=== PATIENT | female | born 1975 | race Caucasian/White ===

== ENCOUNTER 2017-02-10 14:10 | Emergency (ER) | payer OTHER ==
[2017-02-10 14:18] VITALS: BP 116/78; PULSE 78; TEMP 98.1; BMI 17.4
--- NOTE | 2017-02-10 16:34 | PDOC ---
History of Present Illness - General History Source: Patient Exam Limitations: No Limitations - History of Present Illness Initial Comments: 02/10/17 17:29 Patient is a is a 41 year old female with no pmhx who presents to the ED with a left sided face pain for 2 weeks. Patient states that she has been experiencing left sided forehead and jaw pain for 2 weeks, intermittent, sharp stabbing pain. She describes the pain as muscle squeezing at the side of her face. She was evaluated by her dentist and was given amoxicillin that she discontinued after she was her PCP last week. She also reports right ear ringing but denies any on the left side. LMP - 02/07/17 She denies any drooling, change in taste, change in vision or blurry vision. PCP - Soraida musa <Nia Gtz - Last Filed: 02/10/17 18:17> <Jatin Chan - Last Filed: 02/10/17 19:51> - General Chief Complaint: Pain Stated Complaint: LEFT SIDE PAIN ON FACE Time Seen by Provider: 02/10/17 16:33 Past History <Nia Gtz - Last Filed: 02/10/17 18:17> - Past Medical History Anemia: Yes Asthma: No Cancer: No Cardiac Disorders: Yes (MURMUR) CVA: No COPD: No CHF: No Dementia: No Diabetes: No GI Disorders: No Disorders: No HTN: No Hypercholesterolemia: No Liver Disease: No Seizures: No Thyroid Disease: No Other medical history: FIBROIDS - Surgical History Abdominal Surgery: No Appendectomy: No Cardiac Surgery: No Cholecystectomy: No Lung Surgery: No Neurologic Surgery: No Orthopedic Surgery: No - Psycho/Social/Smoking Cessation Hx Anxiety: No Suicidal Ideation: No Smoking History: Never smoked Have you smoked in the past 12 months: No Information on smoking cessation initiated: No Hx Alcohol Use: No Drug/Substance Use Hx: No Substance Use Type: None Hx Substance Use Treatment: No <Jatin Chan - Last Filed: 02/10/17 19:51> - Past Medical History Allergies/Adverse Reactions: Allergies Allergy/AdvReac Type Severity Reaction Status Date / Time No Known Drug Allergies Allergy Verified 02/10/17 14:13 Home Medications: Ambulatory Orders Clindamycin [Cleocin -] 150 mg PO Q8H 02/10/17 Review of Systems - Review of Systems Able to Perform ROS?: Yes Comments:: 02/10/17 17:30 CONSTITUTIONAL: No fever, no chills, no fatigue EYES: No visual changes ENT: No ear pain, no sore throat HEAD: +left sided chest pain CARDIOVASCULAR: No chest pain, no palpitations RESPIRATORY: No cough, no SOB GI: No abdominal pain, no nausea, no vomiting, no constipation, no diarrhea GENITOURINARY: No dysuria, no frequency, no hematuria MUSKULOSKELETAL: No backpain, no joint pain, no myalgias SKIN: No rash NEURO: No headache <Nia Gtz - Last Filed: 02/10/17 18:17> *Physical Exam - Vital Signs Last Vital Signs Temp Pulse Resp BP Pulse Ox 98.1 F 78 18 116/78 100 02/10/17 14:15 02/10/17 14:15 02/10/17 14:15 02/10/17 14:15 02/10/17 14:15 - Physical Exam Comments: 02/10/17 18:18 CONSTITUTIONAL: Well-appearing; well-nourished; in no apparent distress HEAD: Normocephalic; atraumatic EYES: PERRL; EOMI, no nystagmus ENMT: +TMJ pain on the left, left sided small less than 1.5 cm enlarged preauricular lymph node non tender, Normal TMs bilaterally, no swelling of the external auditory meatus, External normal on the right; normal oropharynx, normal dentition, no malocclusion,No gengival induration or abscesses No sinus tenderness. No conjunctival pallor. Sclera are non-icteric. Moist mucous membranes. NECK: Supple; nontender; no cervical lymphadenopathy CARD: Normal S1, S2; no murmurs, rubs, or gallops RESP: Normal chest excursion with respiration; breath sounds clear and equal bilaterally; no wheezes, rhonchi, or rales ABD: Soft, non-distended; non-tender; no palpable organomegaly, no palpable hernias EXT: Normal ROM in all four extremities; non-tender to palpation; distal pulses intact SKIN: Warm, dry, no rash NEURO: +Alert, awake, appropriate. Cranial nerves 2-12 intact. Gait is stable, motor strength 5/5 <Nia Gtz - Last Filed: 02/10/17 18:17> - Vital Signs Last Vital Signs Temp Pulse Resp BP Pulse Ox 98.1 F 78 18 116/78 100 02/10/17 14:15 02/10/17 14:15 02/10/17 14:15 02/10/17 14:15 02/10/17 14:15 <Jatin Chan - Last Filed: 02/10/17 19:51> Medical Decision Making - Medical Decision Making 02/10/17 19:47 Patient is a well-appearing 41-year-old female who presents to the ER with atraumatic left facial pain for the past 3 weeks. Pain is intermittent, lancinating character, primarily involving the zygomatic arch and maxilla without changes visual acuity or other neurological deficits. In the ER, tenderness at the left TMJ was noted. Tympanic membrane and the external auditory meatus within normal limit. Small nontender, left preauricular lymph node is noted. There is no mastoid tenderness. CT of head shows no evidence of acute intracranial pathology. Differential diagnoses includes TMJ and trigeminal neuralgia. Will advise patient to take high-dose ibuprofen and if no relief, we'll advise follow up with neurology for evaluation of trigeminal neuralgia. I do not suspect Connors's palsy, subarachnoid hemorrhage or meningitis/ encephalitis at this time. Will discharge. <Jatin Chan - Last Filed: 02/10/17 19:51> *DC/Admit/Observation/Transfer - Attestations Scribe Attestion: 02/10/17 17:30 Documentation prepared by ELHAM Stein, acting as emergency medical service manager for Jtain Chan MD. <Nia Gtz - Last Filed: 02/10/17 18:17> - Attestations Physician Attestion: 02/10/17 19:46 The documentation was prepared by the scribe under my direct supervision. I have reviewed the documentation which correctly represents the findings, medical decision-making and critical action taken by me. <Jatin Chan - Last Filed: 02/10/17 19:51> Diagnosis at time of Disposition: Facial pain, acute - Discharge Dispostion Disposition: HOME Condition at time of disposition: Stable - Referrals Referrals: Raymundo Mitchell MD [Staff Physician] - - Patient Instructions Printed Discharge Instructions: DI for Headache, DI for Temporomandibular Disorder, DI for Trigeminal Neuralgia
[2017-02-10] MEDS ORDERED: IBUPROFEN 600 MG TABLET (FP) PO ONE ×2 (16:55→17:28)
== END 2017-02-10 20:12 | disposition home or self-care (01) ==
LOC: JER 14:10
DX: R51 Headache (principal); D64.9 Anemia, unspecified; R01.1 Cardiac murmur, unspecified
CPT/HCPCS: 70450-TC; 84703; 99282-25

== ENCOUNTER 2018-02-15 11:29 | Emergency (ER) | payer OTHER ==
[2018-02-15 11:35] VITALS: BP 113/59; PULSE 73; TEMP 98.4; BMI 18.1
[2018-02-15] MEDS ORDERED: ONDANSETRON 4 MG/2 ML VIAL IVPUSH ONE (12:23)
[2018-02-15] MEDS ORDERED: ACETAMINOPHEN 1000 MG/100 ML VIAL (NON FORMULARY) IVPB ONE (12:23)
[2018-02-15] MEDS ORDERED: ACETAMINOPHEN INJECTION 100 ML IVPB ONE (12:40)
[2018-02-15] MEDS ORDERED: ONDANSETRON 4 MG/2 ML VIAL ONE (12:40)
--- NOTE | 2018-02-15 12:52 | PDOC ---
Attending Attestation - Resident Resident Name: NikGuido montanez - ED Attending Attestation I have performed the following: I have examined & evaluated the patient, The case was reviewed & discussed with the resident, I agree w/resident's findings & plan, Exceptions are as noted - HPI HPI: 42 yo F history fibroids presents with 2 month history of LLQ and lower abdominal pain radiating to back and left leg. +Waxing and waning pelvic pain, herrera vaginal discharge. - Physicial Exam PE: GENERAL: Awake, alert, and fully oriented, in no acute distress HEAD: No signs of trauma EYES: PERRLA, EOMI, sclera anicteric, conjunctiva clear ENT: Auricles normal inspection, hearing grossly normal, nares patent, oropharynx clear without exudates. Moist mucosa NECK: Normal ROM, supple, no lymphadenopathy, JVD, or masses LUNGS: Breath sounds equal, clear to auscultation bilaterally. No wheezes, and no crackles HEART: Regular rate and rhythm, normal S1 and S2, no murmurs, rubs or gallops ABDOMEN: Soft, +LLQ tenderness, normoactive bowel sounds. No guarding, no rebound. No masses EXTREMITIES: Normal range of motion, no edema. No clubbing or cyanosis. No cords, erythema, or tenderness NEUROLOGICAL: Cranial nerves II through XII grossly intact. Normal speech, normal gait SKIN: Warm, Dry, normal turgor, no rashes or lesions noted. - Medical Decision Making Pt with history of fibroids, p/w pain to LLQ. Fibroids vs UTI vs diverticulitis.
[2018-02-15 13:13] LABS: URINE APPEARANCE CLEAR; URINE BILIRUBIN NEGATIVE (<2.0 mg/dL); URINE COLOR LTYELLOW; URINE GLUCOSE (UA) NEGATIVE (NEGATIVE); URINE KETONE NEGATIVE (NEGATIVE); URINE LEUK ESTERASE NEGATIVE (NEGATIVE); URINE NITRITE NEGATIVE (NEGATIVE); URINE PROTEIN NEGATIVE (NEGATIVE); URINE UROBILINOGEN NEGATIVE mg/dL (0.2-1.0)
[2018-02-15 13:15] LABS: BASO % 0.4 % (0-2.0); EOS % 0.1 % (0-4.5); HEMATOCRIT 32.9 % (32.4-45.2); HEMOGLOBIN 10.9 GM/dL (10.7-15.3); LYMPH % 14.1 % (8-40); MCH 26.3 pg (25.7-33.7); MCHC 33.3 g/dl (32.0-36.0); MEAN CELL VOLUME 79.1 fl (80-96); MEAN PLT VOLUME 8.4 fl (7.5-11.1); MONO % 4.5 % (3.8-10.2); NEUT % 80.9 % (42.8-82.8); PLATELET COUNT 268 K/MM3 (134-434); RBC 4.16 M/mm3 (3.60-5.2); RDW 16.2 % (11.6-15.6); WHITE BLOOD COUNT 5.8 K/mm3 (4.0-10.0)
--- NOTE | 2018-02-15 13:34 | PDOC ---
History of Present Illness - General Chief Complaint: Pain Stated Complaint: LEG PAIN Time Seen by Provider: 02/15/18 12:07 History Source: Patient Exam Limitations: No Limitations - History of Present Illness Initial Comments: 02/15/18 13:28 Patient is a 42F with a history of uterine fibroids here today complaining of 2 months of left lower quadrant and lower abdominal pain that radiates to her left leg. Patient states that she has associate dysuria. She describes the pain as a stabbing pain that comes and goes. Patient is coming into the ED because the pain has worsened. She also complains of associated pelvic pain and herrera vaginal discharge. She states that she does not use control, is monogamous with her , and denies prior STIs. Past History - Past Medical History Allergies/Adverse Reactions: Allergies Allergy/AdvReac Type Severity Reaction Status Date / Time No Known Drug Allergies Allergy Verified 02/15/18 11:31 Home Medications: Ambulatory Orders NK [No Known Home Medication] 02/15/18 Anemia: Yes Asthma: No Cancer: No Cardiac Disorders: Yes (MURMUR) CVA: No COPD: No CHF: No DVT: No Dementia: No Diabetes: No GI Disorders: No Disorders: No HTN: No Hypercholesterolemia: No Liver Disease: No Seizures: No Thyroid Disease: No - Surgical History Abdominal Surgery: Yes (FIBROIDS) Appendectomy: No Cardiac Surgery: No Cholecystectomy: No Lung Surgery: No Neurologic Surgery: No Orthopedic Surgery: No - Suicide/Smoking/Psychosocial Hx Smoking History: Never smoked Have you smoked in the past 12 months: No Information on smoking cessation initiated: No Hx Alcohol Use: No Drug/Substance Use Hx: No Substance Use Type: None Hx Substance Use Treatment: No Review of Systems - Review of Systems Comments:: 02/15/18 13:32 GENERAL/CONSTITUTIONAL: No fever +chills. No weakness. HEAD, EYES, EARS, NOSE AND THROAT: No change in vision. No sore throat. CARDIOVASCULAR: No chest pain or shortness of breath RESPIRATORY: No cough, wheezing, or hemoptysis. GASTROINTESTINAL: +nausea No vomiting, diarrhea or constipation. GENITOURINARY: +dysuria. No frequency, or change in urination. MUSCULOSKELETAL: No joint or muscle swelling or pain. No neck or back pain. SKIN: No rash NEUROLOGIC: No headache, vertigo, loss of consciousness, or change in strength/ sensation. ENDOCRINE: No increased thirst. No abnormal weight change HEMATOLOGIC/LYMPHATIC: No anemia, easy bleeding, or history of blood clots. ALLERGIC/IMMUNOLOGIC: No hives or skin allergy. *Physical Exam - Vital Signs Last Vital Signs Temp Pulse Resp BP Pulse Ox 98.4 F 73 18 113/59 100 02/15/18 11:33 02/15/18 11:33 02/15/18 11:33 02/15/18 11:33 02/15/18 11:33 - Physical Exam Comments: 02/15/18 13:34 GENERAL: Awake, alert, and fully oriented, in no acute distress PELVIC: Normal appearing external genitalia, no CMT, mass felt below uterus, no adnexal tenderness HEAD: No signs of trauma, normocephalic, atraumatic EYES: PERRLA, EOMI, sclera anicteric, conjunctiva clear ENT: Auricles normal inspection, hearing grossly normal, nares patent, oropharynx clear without exudates. Moist mucosa NECK: Normal ROM, supple, no lymphadenopathy, JVD, or masses LUNGS: No distress, speaks full sentences, clear to auscultation bilaterally HEART: Regular rate and rhythm, normal S1 and S2, no murmurs, rubs or gallops, peripheral pulses normal and equal bilaterally. ABDOMEN: Soft, +suprapubic and LLQ tenderness. No guarding, no rebound. No masses. +CVA tenderness on left EXTREMITIES: Normal inspection, Normal range of motion, no edema. No clubbing or cyanosis. NEUROLOGICAL: Cranial nerves II through XII grossly intact. Normal speech, no focal sensorimotor deficits SKIN: Warm, Dry, normal turgor, no rashes or lesions noted. ED Treatment Course - LABORATORY CBC & Chemistry Diagram: 02/15/18 12:36 02/15/18 12:36 - ADDITIONAL ORDERS Additional order review: Laboratory Results 02/15/18 12:36 Urine Color Ltyellow Urine Appearance Clear Urine pH 5.0 Ur Specific Ramer 1.019 Urine Protein Negative Urine Glucose (UA) Negative Urine Ketones Negative Urine Blood 3+ H Urine Nitrite Negative Urine Bilirubin Negative Urine Urobilinogen Negative Ur Leukocyte Esterase Negative 02/15/18 12:36 RBC 4.16 MCV 79.1 L MCHC 33.3 RDW 16.2 H MPV 8.4 Neutrophils % 80.9 Lymphocytes % 14.1 D Monocytes % 4.5 Eosinophils % 0.1 Basophils % 0.4 - RADIOLOGY Radiology Studies Ordered: Category Date Time Status TRANSVAGINAL ULTRASOUND US [US] Stat Ultrasound 02/15/18 12:50 Ordered - Medications Given in the ED: ED Medications Discontinued Medications Generic Name Dose Route Start Last Admin Trade Name Mari PRN Reason Stop Dose Admin Acetaminophen 1,000 mg 02/15/18 12:23 02/15/18 13:08 Ofirmev Injection - IVPB 02/15/18 12:24 1,000 mg ONCE ONE Administration Ondansetron HCl 4 mg 02/15/18 12:23 02/15/18 13:08 Zofran Injection IVPUSH 02/15/18 12:24 4 mg ONCE ONE Administration Medical Decision Making - Medical Decision Making 02/15/18 13:36 Patient is 42F with history of uterine fibroids here today complaining of LLQ pain, pelvic pain, and dysuria. Pelvic exam shows likely uterine fibroids. DDx includes, but is not limited to: fibroids, UTI/pyelo, diverticulitis. Will workup initially with TVUS and abdominal labs. UA shows no infection. Will do CT with PO/IV contrast. 02/15/18 16:00 Laboratory Tests 02/15/18 02/15/18 02/15/18 12:36 12:36 12:36 WBC 5.8 Plt Count 268 Sodium 139 Serum , Qual Urine Blood 3+ H Urine Nitrite Negative Ur Leukocyte Esterase Negative 02/15/18 12:36 WBC Plt Count Sodium Serum , Qual Negative Urine Blood Urine Nitrite Ur Leukocyte Esterase CBC normal. CMP reassuring. UA shows blood, currently menstruating. Preg negative. Pending US and CT. 02/15/18 16:28 TVUS shows no acute pathology. Pending CT read. 02/15/18 17:26 CT normal. Patient reports feeling better. Will follow up with OBGYN. *DC/Admit/Observation/Transfer Diagnosis at time of Disposition: Pelvic pain - Discharge Dispostion Disposition: HOME Condition at time of disposition: Good Decision to Admit order: No - Referrals Referrals: Jensen Hensley [Primary Care Provider] - - Patient Instructions Printed Discharge Instructions: DI for Pelvic Pain Additional Instructions: Please return if you have any new, worsening or concerning symptoms. Please follow up with your OBGYN doctor this week. - Post Discharge Activity
[2018-02-15 13:39] LABS: ALBUMIN 3.8 g/dl (3.4-5.0); ALK PHOS 86 U/L (45-117); ANION GAP 5 (8-16); BILIRUBIN,TOTAL 0.4 mg/dL (0.2-1.0); BLOOD UREA NITROGEN 12 mg/dL (7-18); CALCIUM 8.4 mg/dL (8.5-10.1); CHLORIDE 105 mmol/L (98-107); CO2 29 mmol/L (21-32); CREATININE 0.6 mg/dL (0.55-1.02); GLUCOSE,RANDOM 97 mg/dL (74-106); LIPASE 76 U/L (73-393); SGOT/AST 16 U/L (15-37); SGPT/ALT 19 U/L (12-78); SODIUM 139 mmol/L (136-145); TOT PROT 7.5 g/dl (6.4-8.2)
[2018-02-15 14:09] LABS: EPI CELLS RARE /HPF (FEW); URINE MUCUS RARE
== END 2018-02-15 17:40 | disposition home or self-care (01) ==
LOC: JER 11:29
PROC: 3E033NZ Introduction of Analgesics, Hypnotics, Sedatives into Peripheral Vein, Percutaneous Approach (ICD-10-PCS; principal; 2018-02-15)
PROC: 3E033GC Introduction of Other Therapeutic Substance into Peripheral Vein, Percutaneous Approach (ICD-10-PCS; 2018-02-15)
DX: R10.2 Pelvic and perineal pain (principal); Z87.42 Personal history of other diseases of the female genital tract
CPT/HCPCS: 36415; 74177-TC; 76830-TC; 80053; 81003; 81015; 83690; 84703; 85025; 86850; 86900; 86901; 87086; 87491; 87591; 96374; 96375; 99283-25; J0131